=== PATIENT | male | born 1990 | race American Indian/Alaskan Native ===

== ENCOUNTER 2019-08-08 15:34 | Emergency (ER) | payer SELFPAY ==
[2019-08-08 15:58] VITALS: BP 141/87
--- NOTE | 2019-08-08 16:35 | XRay Report ---
CHEST PA AND LATERAL VIEWS INDICATION: SOB, cough. COMPARISON: None. FINDINGS: Support devices: None. Heart: Within normal limits. Lungs/Pleura: No acute pulmonary or pleural findings. IMPRESSION: 1. No acute findings. Signer Name: Vince Warner MD Signed: 08/08/2019 4:31 PM Workstation Name: [id number]
== END 2019-08-08 17:10 | disposition left against medical advice (07) ==
LOC: ED 15:34
DX: R05 Cough (principal); Z53.21 Procedure and treatment not carried out due to patient leaving prior to being seen by health care provider
CPT/HCPCS: 71046